=== PATIENT | male | born 1990 | race Caucasian/White ===

== ENCOUNTER 2018-01-12 20:35 | Emergency (ER) | payer MEDICAID ==
[2018-01-12 20:41] VITALS: RESP 20
--- NOTE | 2018-01-12 21:31 | XR ---
EXAMINATION TYPE: XR chest 2V DATE OF EXAM: 01/12/2018 COMPARISON: NONE HISTORY: Chest pain causing left arm numbness. TECHNIQUE: Frontal and lateral views of the chest are obtained. FINDINGS: Overlying EKG leads are seen. There is no focal air space opacity, pleural effusion, or pne umothorax seen. The cardiac silhouette size is within normal limits. The osseous structures are in tact. IMPRESSION: No acute cardiopulmonary process.
--- NOTE | 2018-01-12 21:47 | ED ---
Chest Pain HPI - General Chief Complaint: Chest Pain Stated Complaint: chest & arm pain Time Seen by Provider: 01/12/18 21:07 Source: patient, family Mode of arrival: ambulatory Limitations: no limitations - History of Present Illness Initial Comments: This patient is a 27-year-old man who presents to be evaluated for an episode of racing heart and dyspnea that came on between 1-2 hours ago. Patient states that around 8 tonight he was getting out of a tree blind that he had been hunting in. He states that when he into the car and was driving he noticed that his heart was racing and he became very short of breath. The patient did not have chest pain. He did not have nausea or vomiting or any diaphoresis. No syncope. Patient states that symptoms lasted probably 15-20 minutes and resolved. He states that he feels completely normal now. MD Complaint: other (Palpitations) Onset/Timin -: hour(s) Onset: during exertion Consistency: now resolved Improves With: nothing Worsens With: nothing Anginal Symptoms: dyspnea Treatments Prior to Arrival: none - Related Data Home Medications Medication Instructions Recorded Confirmed HYDROcodone/APAP 10-325MG [[place] 2 tab PO ONCE PRN 01/12/18 01/12/18 10-325] Allergies Allergy/AdvReac Type Severity Reaction Status Date / Time No Known Allergies Allergy Verified 01/12/18 20:52 Review of Systems ROS Statement: Those systems with pertinent positive or pertinent negative responses have been documented in the HPI. ROS Other: All systems not noted in ROS Statement are negative. Constitutional: Denies: fever, chills Respiratory: Reports: as per HPI, dyspnea. Denies: cough, wheezes Cardiovascular: Reports: palpitations. Denies: chest pain, dyspnea on exertion , orthopnea, edema, syncope Gastrointestinal: Denies: abdominal pain, nausea, vomiting, diarrhea Genitourinary: Denies: dysuria, hematuria Musculoskeletal: Denies: back pain Skin: Denies: rash Neurological: Denies: headache, weakness EKG Findings - EKG Results: EKG: interpreted by JOSETTE OLIVARES, sinus rhythm (With sinus arrhythmia, rate 88 bpm) , normal axis, normal QRS, normal ST/T, no acute changes Past Medical History Additional Past Medical History / Comment(s): anxiety History of Any Multi-Drug Resistant Organisms: None Reported Past Surgical History: Orthopedic Surgery Past Psychological History: Anxiety Smoking Status: Former smoker Past Alcohol Use History: None Reported Past Drug Use History: None Reported General Exam Limitations: no limitations General appearance: alert, in no apparent distress Head exam: Present: atraumatic, normocephalic Eye exam: Present: normal appearance. Absent: scleral icterus, conjunctival injection ENT exam: Present: normal oropharynx Neck exam: Present: normal inspection Respiratory exam: Present: normal lung sounds bilaterally. Absent: respiratory distress, wheezes, rales, rhonchi, stridor Cardiovascular Exam: Present: regular rate, normal rhythm, normal heart sounds. Absent: systolic murmur, diastolic murmur, rubs, gallop GI/Abdominal exam: Present: soft. Absent: distended, tenderness, guarding, rebound, rigid, mass, pulsatile mass, hernia Extremities exam: Present: normal inspection, normal capillary refill. Absent: pedal edema, calf tenderness Back exam: Present: normal inspection. Absent: CVA tenderness (R), CVA tenderness (L) Neurological exam: Present: alert, normal gait Skin exam: Present: warm, dry, intact, normal color. Absent: rash Course Vital Signs 01/12/18 20:36 Temperature 98.6 F Pulse Rate 85 Respiratory 20 Rate Blood Pressure 157/104 Disposition Clinical Impression: Palpitations Disposition: HOME SELF-CARE Condition: Good Instructions: Heart Palpitations (DC) Is patient prescribed a controlled substance at d/c from ED?: No Referrals: None,Stated [Primary Care Provider] - 1-2 days
[2018-01-12 22:06] VITALS: BP 133/78; PULSE 82; TEMP 98.3
== END 2018-01-12 22:06 | disposition home or self-care (01) ==
LOC: EC 20:35
DX: R00.2 Palpitations (principal); R07.9 Chest pain, unspecified; Z87.891 Personal history of nicotine dependence
CPT/HCPCS: 71046; 93005; 99284

== ENCOUNTER 2018-03-26 17:32 | Emergency (ER) | payer MEDICAID ==
[2018-03-26] MEDS ORDERED: KETOROLAC 60 MG/2 ML VIAL IM STA (20:01)
--- NOTE | 2018-03-26 20:06 | ED ---
General Adult HPI - General Chief complaint: Chest Pain Stated complaint: CHEST TIGHTNESS, [place], LUNGS BURNING, HIGH HR Time Seen by Provider: 03/26/18 18:00 Source: patient, RN notes reviewed Mode of arrival: ambulatory Limitations: no limitations - History of Present Illness Initial comments: This is a 27-year-old male who presents emergency Department stating about a month ago he had some heart palpitations she was seen in emergency department told he had anxiety. Patient has not followed up since per patient states over the last week and a half he's been having intermittent palpitations as well and some left sided pectoral muscle pain. Patient states he thinks after he was building some shelves and hurt this area of his chest and anytime he lifts his arm hurts there. Patient states this happened about a week and half ago. Patient states for the last 3 days when he takes a deep breath he feels a little burning sensation in his chest. Patient denies shortness of breath. Patient denies any fever or chills. Patient denies any palpitations currently. Patient denies abdominal pain patient denies nausea vomiting diarrhea. Patient chemistries been lifting of his left arm that hurts in the chest area. Patient states palpating that area does not hurt. Patient denies any lightheadedness dizziness or near syncopal episode. - Related Data Home Medications Medication Instructions Recorded Confirmed ALPRAZolam [Xanax] 1 mg PO DAILY PRN 03/26/18 03/26/18 Allergies Allergy/AdvReac Type Severity Reaction Status Date / Time No Known Allergies Allergy Verified 03/26/18 20:11 Review of Systems ROS Statement: Those systems with pertinent positive or pertinent negative responses have been documented in the HPI. ROS Other: All systems not noted in ROS Statement are negative. Past Medical History Additional Past Medical History / Comment(s): anxiety History of Any Multi-Drug Resistant Organisms: None Reported Past Surgical History: Orthopedic Surgery Past Psychological History: Anxiety Smoking Status: Current some day smoker Past Alcohol Use History: None Reported Past Drug Use History: None Reported General Exam - General Exam Comments Initial Comments: GENERAL: Patient is well-developed and well-nourished. Patient is nontoxic and well- hydrated and is in no acute distress. ENT: Neck is soft and supple. No significant lymphadenopathy is noted. Oropharynx is clear. Moist mucous membranes. Neck has full range of motion without eliciting any pain. EYES: The sclera were anicteric and conjunctiva were pink and moist. Extraocular movements were intact and pupils were equal round and reactive to light. Eyelids were unremarkable. PULMONARY: Unlabored respirations. Good breath sounds bilaterally. No audible rales rhonchi or wheezing was noted. CARDIOVASCULAR: There is a regular rate and rhythm without any murmurs gallops or rubs. Palpation does not elicit the same pain. ABDOMEN: Soft and nontender with normal bowel sounds. SKIN: Skin is clear with no lesions or rashes and otherwise unremarkable. NEUROLOGIC: Patient is alert and oriented x3. Cranial nerves II through XII are grossly intact. Motor and sensory are also intact. Normal speech, volume and content. Symmetrical smile. MUSCULOSKELETAL: Normal extremities with adequate strength and full range of motion. Patient states that the left arm causes increased pain. LYMPHATICS: No significant lymphadenopathy is noted PSYCHIATRIC: Normal psychiatric evaluation. Limitations: no limitations Course Vital Signs 03/26/18 17:54 Temperature 98.2 F Pulse Rate 72 Respiratory 18 Rate Blood Pressure 147/86 O2 Sat by Pulse 98 Oximetry Medical Decision Making - Medical Decision Making EKG shows sinus bradycardia at [address] interval 248 QRSs 80 QT interval 394 QTC is 366 per patient's EKG shows no ST segment elevation or depression or T wave abnormalities are noted. Toradol took away the patient's pain completely. Chest x-ray showed no acute abnormality. Disposition Clinical Impression: Chest wall pain, Palpitations Disposition: HOME SELF-CARE Instructions: Chest Wall Pain (ED), Heart Palpitations (ED) Is patient prescribed a controlled substance at d/c from ED?: No Referrals: Kenneth Cao MD [Primary Care Provider] - 1-2 days Time of Disposition: 21:13
--- NOTE | 2018-03-26 21:04 | XR ---
EXAMINATION TYPE: XR chest 2V DATE OF EXAM: 03/26/2018 COMPARISON: 01/12/2018 HISTORY: Difficulty breathing TECHNIQUE: Frontal and lateral views of the chest are obtained. FINDINGS: Heart and mediastinum are normal. Lungs are clear. Diaphragm is normal. Bony thorax is nor mal. IMPRESSION: Normal chest. No change compared to old exam.
[2018-03-26 22:20] VITALS: BP 135/87; PULSE 75; RESP 19; TEMP 98
== END 2018-03-26 21:38 | disposition home or self-care (01) ==
LOC: EC 17:32
DX: R00.2 Palpitations (principal); R07.89 Other chest pain; R00.1 Bradycardia, unspecified; M79.602 Pain in left arm; F17.200 Nicotine dependence, unspecified, uncomplicated
CPT/HCPCS: 71046; 99284; 96372; J1885